=== PATIENT | male | born 1955 | race Caucasian/White ===

== ENCOUNTER 2020-06-25 14:01 | Outpatient (CLI) | payer BC ==
--- NOTE | 2020-06-25 16:12 | XRAY Report ---
PROCEDURE: Foot 3 View LT INDICATIONS: CRUSHING INJURY OF LEFT FOOT TECHNIQUE: 3 views of the foot were acquired. COMPARISON: none FINDINGS: Bones: No fractures or dislocations. No suspicious bony lesions. Soft tissues: No tibiotalar joint effusion. Achilles tendon appears normal. IMPRESSION: No visualized acute fracture or dislocation. However, occult injury cannot be excluded. Recommend leisa rt interval imaging follow-up in 7-10 days as clinically indicated for additional evaluation. Reviewed by: Yoselin Banks MD on 06/25/2020 4:10 PM PDT Approved by: Yoselin Banks MD on 06/25/2020 4:10 PM PDT Station ID: [id number]
== END 2020-06-25 14:02 | disposition home or self-care (01) ==
LOC: DI.S 14:01
PROVIDERS: ATTEND Physician Assistant
DX: S97.82XA Crushing injury of left foot, initial encounter (principal)

== ENCOUNTER 2020-11-16 08:00 | Outpatient (CLI) | payer SELFPAY ==
[2020-11-16 20:03] LABS: BASOPHILS # (AUTO) 0.1 10^3/uL (0.0-0.1); EOSINOPHILS # (AUTO) 0.1 10^3/uL (0.0-0.7); EOSINOPHILS % (AUTO) 1.4 %; HGB - HEMOGLOBIN 15.2 g/dL (14.0-18.0); LYMPHOCYTES # (AUTO) 1.2 10^3/uL (1.5-3.5); LYMPHOCYTES % (AUTO) 23.3 %; MEAN CORPUSCULAR HEMOGLOBIN 33.3 pg (27.0-31.0); MEAN CORPUSCULAR HGB CONC 33.8 g/dL (32.0-36.0); MEAN CORPUSCULAR VOLUME 98.7 fL (80.0-94.0); MEAN PLATELET VOLUME 10.4 fL (7.4-11.4); MONOCYTES # (AUTO) 0.5 10^3/uL (0.0-1.0); MONOCYTES % (AUTO) 10.3 %; NEUTROPHILS # (AUTO) 3.2 10^3/uL (1.5-6.6); NEUTROPHILS % (AUTO) 63.8 %; PLT - PLATELET COUNT 195 10^3/uL (130-450); RED BLOOD COUNT 4.56 10^6/uL (4.70-6.10); RED CELL DISTRIBUTION WIDTH 11.6 % (12.0-15.0)
[2020-11-16 20:24] LABS: ALBUMIN 4.3 g/dL (3.2-5.5); ALBUMIN/GLOBULIN RATIO 1.3 (1.0-2.2); ALKALINE PHOSPHATASE 72 IU/L (42-121); ALT ALANINE AMINOTRANSFERASE 23 IU/L (10-60); AST ASPARTATE AMINOTRANSFERASE 29 IU/L (10-42); BILIRUBIN,TOTAL 1.2 mg/dL (0.2-1.0); BUN - BLOOD UREA NITROGEN 14 mg/dL (6-20); CALCIUM 9.3 mg/dL (8.5-10.3); CARBON DIOXIDE - CO2 26 mmol/L (21-32); CHLORIDE 103 mmol/L (101-111); CHOL/HDL RATIO 4.1 (<5.0); CHOLESTEROL 243 mg/dL; CREATININE 0.8 mg/dL (0.6-1.2); GLUCOSE 97 mg/dL (70-100); HDL CHOLESTEROL 60 mg/dL; LDL CHOLESTEROL,CALCULATED 155 mg/dL; LDL/HDL RATIO 2.6 (<3.6); TOTAL PROTEIN 7.6 g/dL (6.7-8.2); VLDL CHOLESTEROL 28 mg/dL
== END 2020-11-16 23:59 | disposition home or self-care (01) ==
LOC: LAB.S 08:00
PROVIDERS: ATTEND Emergency Medicine
DX: I10 Essential (primary) hypertension (principal); E78.5 Hyperlipidemia, unspecified; N40.0 Benign prostatic hyperplasia without lower urinary tract symptoms
CPT/HCPCS: 36415; 80053; 80061; 81001; 83721; 84153; 84443; 85025; 87086

== ENCOUNTER 2021-08-20 10:52 | Emergency (ER) | payer BC, MEDICARE, OTHER ==
[2021-08-20 11:03] VITALS: BP 185/91
--- NOTE | 2021-08-20 11:48 | XRAY Report ---
PROCEDURE: Wrist 4 View RT INDICATIONS: Trauma TECHNIQUE: 4 views of the wrist were acquired. COMPARISON: None FINDINGS: Bones: No acute fractures or dislocations. No suspicious bony lesions. Moderate degenerative change s of the right thumb interphalangeal and metacarpophalangeal joints. Moderate degenerative changes of the right first carpometacarpal and triscaphe joints. No suspicious osseous reaction or osseous eros ions. Scaphoid view: Scaphoid appears intact. Scapholunate interval is maintained. Soft tissues: No suspicious soft tissue calcifications. IMPRESSION: Right wrist without acute fracture or dislocation. Moderate polyarticular osteoarthritic changes of the right wrist most pronounced in the right thumb i nterphalangeal and metacarpophalangeal joints as well as the first carpometacarpal and triscaphe join ts. If there is persistent clinical concern for pathology, consider further evaluation with repeat radiog raphs in 10-14 days versus advanced imaging with CT, nuclear medicine, or MRI. Reviewed by: Alfredo Garcia MD on 08/20/2021 11:47 AM PST Approved by: Alfredo Garcia MD on 08/20/2021 11:47 AM PST Station ID: [id number]
--- NOTE | 2021-08-20 12:14 | ED Physician Documentation ---
PD HPI UPPER EXT INJURY - Stated complaint Stated Complaint: R WRIST PX - Chief complaint Chief Complaint: Ext Problem - History obtained from History obtained from: Patient (Without specific trauma this right-handed gentleman has been having pain mostly in the area of the first and second proximal metacarpals for the last week. Certain rotational motions really make it worse.) Review of Systems Constitutional: reports: Reviewed and negative Eyes: reports: Reviewed and negative Ears: reports: Reviewed and negative Nose: reports: Reviewed and negative Throat: reports: Reviewed and negative Cardiac: reports: Reviewed and negative Respiratory: reports: Reviewed and negative PD PAST MEDICAL HISTORY - Past Medical History Past Medical History: Yes Cardiovascular: None Respiratory: Pneumonia Neuro: None Endocrine/Autoimmune: None GI: None : None HEENT: Chronic vision loss Psych: None Musculoskeletal: None Derm: None - Past Surgical History Past Surgical History: No - Allergies Allergies/Adverse Reactions: Allergies Allergy/AdvReac Type Severity Reaction Status Date / Time No Known Drug Allergies Allergy Verified 08/20/21 11:03 - Social History Does the pt smoke?: No Smoking Status: Never smoker Does the pt drink ETOH?: No Does the pt have substance abuse?: No - Immunizations Immunizations are current?: Yes - POLST Patient has POLST: No PD ED PE NORMAL - Vitals Vital signs reviewed: Yes - General General: Alert and oriented X 3, No acute distress - HEENT HEENT: PERRL, EOMI - Neck Neck: Supple, no meningeal sign, No bony TTP - Extremities Extremities: Other (Mild tenderness of the dorsal hand in the area of the proximal second and third metacarpals, some swelling there. No redness or signs of infection.) - Neuro Neuro: Alert and oriented X 3, Normal speech Results - Vitals Vitals: Vital Signs - 24 hr 08/20/21 10:58 Temperature 36.6 C Heart Rate 66 Respiratory 15 Rate Blood Pressure 185/91 H O2 Saturation 99 - Rads (name of study) 4 view x-ray of the right wrist Radiology: EMP read contemporaneously (OA, Nad) Departure - Departure Disposition: 01 Home, Self Care Clinical Impression: Osteoarthritis of wrist Qualifiers: Osteoarthritis type: primary Laterality: right Qualified Code(s): M19.031 - Primary osteoarthritis, right wrist Condition: Good Record reviewed to determine appropriate education?: Yes Instructions: ED Degenerative Joint Disease Comments: As discussed, your x-ray shows some arthritis, this in combination with possible overuse has caused the pain. Return if worsening or if new symptoms develop. Otherwise wear the splint as needed for the next couple of weeks and take an [id number] and ineffective anti-inflammatory such as ibuprofen or Aleve for the pain. You can use heat and generally rest. Follow-up with your doctor for further evaluation and treatment.
== END 2021-08-20 12:21 | disposition home or self-care (01) ==
LOC: ED 10:52
DX: M19.031 Primary osteoarthritis, right wrist (principal)
CPT/HCPCS: 99282; 99283